=== PATIENT | male | born 1970 | race African-American/Black ===

== ENCOUNTER 2021-03-29 20:57 | Emergency (ER) | payer OTHER ==
[~2021-03-29] VITALS: Ht 167.6 cm; Wt 62.6 kg
[2021-03-29] MEDS ORDERED: METOCLOPRAMIDE HCL 5MG/ml INJ 2ml VIAL IV ONE (21:30)
[2021-03-29] MEDS ORDERED: FAMOTIDINE (10MG/ML) 2ML VL IV ONE (21:30)
[2021-03-29] MEDS ORDERED: D5W/SOD CHL 0.45% 1,000 ML IV ONE (21:30)
[2021-03-29] MEDS ORDERED: MULTIPLE VITAMIN TAB PO ONE (21:30)
[2021-03-29] MEDS ORDERED: THIAMINE 100mg/ml INJ (200mg/2ml VIAL) IV ONE (21:30)
[2021-03-30 00:39] LABS: Hemoglobin 17.4 g/dL (13.5-17.5); Mean Corpuscular Hemoglobin 28.6 pg (28.0-32.0); Red Cell Distribution Width 14.6 % (11.8-14.3)
[2021-03-30 00:41] LABS: Basophils # (auto) 0 10 ^3/uL (0-0.2); Basophils % (auto) 0.3 % (0.0-2.0); Eosinophils # (auto) 0 10 ^3/uL (0-0.8); Eosinophils % (auto) 0.2 % (0.0-7.0); Hematocrit 50.8 % (41.0-53.0); Lymphocytes # (auto) 1.7 10 ^3/uL (0.4-5.4); Lymphocytes % (auto) 14.7 % (10.0-50.0); Mean Corpuscular Hgb Conc. 34.3 g/dL (32.0-36.0); Mean Corpuscular Volume 83.4 fL (80.0-100.0); Monocytes # (auto) 0.8 10 ^3/uL (0-1.3); Monocytes % (auto) 6.7 % (0.0-12.0); Neutrophils # (auto) 8.9 10 ^3/uL (1.6-8.6); Neutrophils % (auto) 78.1 % (37.0-80.0); Nucleated Red Blood Cells % 0.5 %; Red Blood Cells 6.09 10^6/uL (4.5-5.90); White Blood Cell 11.4 10^3/uL (4.4-10.8)
[2021-03-30 01:09] LABS: Potassium 4.7 mmol/L (3.5-5.1)
[2021-03-30 01:10] LABS: Albumin 3.8 g/dL (3.4-5.0); BUN/Creatinine Ratio 21.9; Calcium 9.1 mg/dL (8.5-10.1)
[2021-03-30 01:12] LABS: Bilirubin, Total 0.7 mg/dL (0.2-1.0); Lactic Acid w/Reflex 2.9 mmol/L (0.4-2.0); Total Protein 8.7 g/dL (6.4-8.2)
[2021-03-30 06:38] VITALS: BP 103/86
== END 2021-03-30 06:43 ==
LOC: ER 21:02 → EEVIPCON 21:02 → ER 03-30 06:43
DX: R45.851 Suicidal ideations (principal); F32.9 Major depressive disorder, single episode, unspecified; F41.9 Anxiety disorder, unspecified; E11.9 Type 2 diabetes mellitus without complications
CPT/HCPCS: 36415; 80053; 83605; 83690; 85025; 96361; 96374; 96375; 99284; J2765; J3411; J3490; J7030